=== PATIENT | male | born 1950 | race Caucasian/White ===

== ENCOUNTER 2018-02-13 11:32 | Emergency (ER) | payer MEDICARE, OTHER ==
[2018-02-13] MEDS ORDERED: NS 0.9% 1000 ML* 1,000 ML IV ONE (14:28)
[2018-02-13] MEDS ORDERED: Ketorolac INJ* 30 MG/ML 1 ML VIAL IV PUSH ONE (14:29)
[2018-02-13 14:54] LABS: ABS Basophils 0.1 10^3/ul (0-0.2); ABS Eosinophils 0.1 10^3/ul (0-0.6); ABS Lymphocytes 0.9 10^3/ul (1.0-4.8); ABS Monocytes 0.7 10^3/ul (0-0.8); ABS Nucleated RBC 0.1 10^3/ul; Hematocrit 47 % (42-52); Hemoglobin 16.3 g/dl (14.0-18.0); Mean Corpuscular HGB Conc 35 g/dl (31-36); Mean Corpuscular Hemoglobin 32 pg (27-31); Mean Corpuscular Volume 93 fL (80-94); Mean Platelet Volume 9 um3 (7.4-10.4); Platelet Count 131 10^3/ul (150-450); Red Blood Count 5.06 10^6/ul (4.0-5.4); Red Cell Distribution Width 13 % (10.5-15); White Blood Count 6.7 10^3/ul (3.5-10.8)
--- NOTE | 2018-02-13 15:02 | RAD ---
Indication: Abdominal pain. CT of the abdomen and pelvis was performed without oral or IV contrast.. Coronal and sagittal reconstructed images were obtained. The lung bases demonstrate no pleural fluid, nodules or masses. Heart is of normal size without evidence of pericardial effusion. The liver is normal in size. There are no focal lesions or intrahepatic duct dilatation noted. The gallbladder demonstrates no calcified gallstones. No pericholecystic fluid or wall thickening is identified. The spleen is normal in size. The pancreas demonstrates no mass or pancreatic duct dictation. No adrenal lesions are noted. The kidneys demonstrate fullness of the right renal collecting system. There is a tiny calculi measuring 2 to 3 mm in the right urinary bladder just adjacent or within the distal right ureterovesicular junction. This may represent a recently passed calculi. No renal masses are noted. No retroperitoneal adenopathy is noted. Atherosclerotic aorta is noted. Inferior vena cava is unremarkable. CT of the pelvis demonstrates normal appearing appendix. No dilated loops of bowel are noted. No hernias are noted. Prostate and seminal vesicles are otherwise unremarkable. The urinary bladder is grossly unremarkable. IMPRESSION: Fullness of the right renal collecting system. There is a 2 to 3 mm calculi in the right urinary bladder which may be within the ureterovesicular junction or just distal to it which may represent a recently passed calculi.
[2018-02-13 15:47] LABS: EGFR Non-African American 55.7 (>60)
[2018-02-13 15:47] LABS: Urine Appearance Clear; Urine Blood 3+ (Negative); Urine Color Yellow; Urine Ketones Negative (Negative); Urine Protein Negative (Negative); Urine Specific Gravity 1.017 (1.010-1.030); Urine Urobilinogen Negative (Negative)
[2018-02-13 16:24] VITALS: BP 125/73
--- NOTE | 2018-02-13 17:39 | ED ---
Faheem Strange Nilda, scribed for Maurice Chung MD on 02/13/18 at 1526 . GI/ HPI - HPI Summary HPI Summary: This patient is a 67 year old M presenting to [facility] with a chief complaint of constant RLQ pain that moves since this morning at 0700. The patient rates the pain 7/10 in severity. Symptoms aggravated by movement and palpation and alleviated by rest. Patient reports nausea but denies vomiting. Patient states no medications except for Atorvastatin. PMHx includes HLD, but no PMHx of renal calculi. - History of Current Complaint Chief Complaint: EDFlankPain Time Seen by Provider: 02/13/18 14:16 Stated Complaint: FLANK PAIN Hx Obtained From: Patient Onset/Duration: Started Hours Ago, Still Present Timing: Constant Current Severity: Severe Pain Intensity: 7 Location of Pain: RLQ Associated Signs and Symptoms: Positive: Other: - nausea; negative vomiting Aggravating Factor(s): Palpation, Movement Alleviating Factor(s): Rest - Allergy/Home Medications Allergies/Adverse Reactions: Allergies Allergy/AdvReac Type Severity Reaction Status Date / Time No Known Allergies Allergy Verified 08/12/17 13:24 PMH/Surg Hx/FS Hx/Imm Hx Cardiovascular History: Reports: Hx Hypercholesterolemia Sensory History: Denies: Hx Legally Blind EENT History: Denies: Hx Deafness - Surgical History Surgery Procedure, Year, and Place: toes Infectious Disease History: No Infectious Disease History: Denies: Traveled Outside the [place] in Last 30 Days - Family History Known Family History: Positive: Cardiac Disease, Diabetes - Social History Alcohol Use: None Substance Use Type: Reports: None Smoking Status (MU): Never Smoked Tobacco Review of Systems Negative: Shortness Of Breath Positive: Abdominal Pain - RLQ pain, Nausea. Negative: Vomiting All Other Systems Reviewed And Are Negative: Yes Physical Exam - Summary Physical Exam Summary: VITAL SIGNS: Reviewed. GENERAL: Patient is a well-developed and nourished male who is lying comfortable in the stretcher. Patient is not in any acute respiratory distress. HEAD AND FACE: No signs of trauma. No ecchymosis, hematomas or skull depressions. No sinus tenderness. EYES: PERRLA, EOMI x 2, No injected conjunctiva, no nystagmus. EARS: Hearing grossly intact. Ear canals and tympanic membranes are within normal limits. MOUTH: Oropharynx within normal limits. NECK: Supple, trachea is midline, no adenopathy, no JVD, no carotid bruit, no c- spine tenderness, neck with full ROM. CHEST: Symmetric, no tenderness at palpation LUNGS: Clear to auscultation bilaterally. No wheezing or crackles. CVS: Regular rate and rhythm, S1 and S2 present, no murmurs or gallops appreciated. ABDOMEN: Soft, non-tender. No signs of distention. No rebound no guarding, and no masses palpated. Bowel sounds are normal. BACK: Right CVA tenderness EXTREMITIES: FROM in all major joints, no edema, no cyanosis or clubbing. NEURO: Alert and oriented x 3. No acute neurological deficits. Speech is normal and follows commands. SKIN: Dry and warm Triage Information Reviewed: Yes Vital Signs On Initial Exam: Initial Vitals Temp Pulse Resp BP Pulse Ox 96.7 F 57 14 142/76 96 02/13/18 11:34 02/13/18 11:34 02/13/18 11:34 02/13/18 11:34 02/13/18 11:34 Vital Signs Reviewed: Yes Diagnostics - Vital Signs Vital Signs Temp Pulse Resp BP Pulse Ox 02/13/18 14:09 97.8 F 56 17 144/88 98 02/13/18 13:34 97.3 F 55 14 125/76 97 02/13/18 11:34 96.7 F 57 14 142/76 96 - Laboratory Lab Results: Lab Results 02/13/18 Range/Units 14:45 WBC 6.7 (3.5-10.8) 10^3/ul RBC 5.06 (4.0-5.4) 10^6/ul Hgb 16.3 (14.0-18.0) g/dl Hct 47 (42-52) % MCV 93 (80-94) fL MCH 32 H (27-31) pg MCHC 35 (31-36) g/dl RDW 13 (10.5-15) % Plt Count 131 L (150-450) 10^3/ul MPV 9 (7.4-10.4) um3 Neut % (Auto) 74.4 (38-83) % Lymph % (Auto) 14.0 L (25-47) % [place] % (Auto) 9.8 H (0-7) % Eos % (Auto) 1.0 (0-6) % Baso % (Auto) 0.8 (0-2) % Absolute Neuts (auto) 5.0 (1.5-7.7) 10^3/ul Absolute Lymphs (auto) 0.9 L (1.0-4.8) 10^3/ul Absolute Monos (auto) 0.7 (0-0.8) 10^3/ul Absolute Eos (auto) 0.1 (0-0.6) 10^3/ul Absolute Basos (auto) 0.1 (0-0.2) 10^3/ul Absolute Nucleated RBC 0.1 10^3/ul Nucleated RBC % 1.0 Result Diagrams: 02/13/18 14:45 02/13/18 14:45 Lab Statement: Any lab studies that have been ordered have been reviewed, and results considered in the medical decision making process. - CT Abd/Pel CT Interpretation Completed By: Radiologist - CT Abd/Pel, per radiologist, reveals Fullness of the right renal collecting system. There is a 2 to 3 mm calculi in the right urinary bladder which may be within the ureterovesicular junction or just distal to it which may represent a recently passed calculi. Dr. Chung has reviewed this radiology report. Re-Evaluation - Re-Evaluation First Eval Re-Evaluation Time: 16:17 Comment: Reviewed labs and imaging with patient. Patient is agreeable to D/C. GIGU Course/Dx - Course Assessment/Plan: This patient is a 67 year old M presenting to [facility] with a chief complaint of constant RLQ pain that moves since this morning at 0700. The patient rates the pain 7/10 in severity. Symptoms aggravated by movement and palpation and alleviated by rest. Patient reports nausea but denies vomiting. Patient states no medications except for Atorvastatin. PMHx includes HLD, but no PMHx of renal calculi. In the ED course an IV access was obtained. Patient was placed in a cardiac care unit nurse. Patient was started with IV fluids. Patient was given Toradol for the pain. Labs without any significant abnormality. Abdominal and pelvic CT IMPRESSION: Fullness of the right renal collecting system. There is a 2 to 3 mm calculi in the right urinary bladder which may be within the ureterovesicular junction or just distal to it which may represent a recently passed calculi. After medications patient feels better and pain resolved. I discussed all the findings and test results with the patient. Patient was instructed to return to the emergency room immediately if any of the symptoms return or worsens. Plan of care was discussed with the patient and understands and agrees. All questions were answered at patient satisfaction. There were no further complaints or concerns. Lung exam before discharge: CTA B/L. Good air exchange. No wheezing or crackles heard. CVS: S1 and S2 present. No murmurs appreciated. Patient is alert and oriented x 3. Patient is hemodynamically stable. Patient will be discharged home with follow up PCP in the next 2-3 days - Diagnoses Differential Diagnoses - Male: Renal Calculi, Renal Colic, Urinary Tract Infection Provider Diagnoses: Kidney stone Discharge - Discharge Plan Condition: Stable Disposition: HOME Patient Education Materials: Kidney Stones (ED) Referrals: Zechariah Fajardo MD [Primary Care Provider] - 3 Days Additional Instructions: RETURN TO THE EMERGENCY DEPARTMENT FOR CHANGING OR WORSENING SYMPTOMS. The documentation as recorded by the Faheem varner Nilda accurately reflects the service I personally performed and the decisions made by me, Maurice Chung MD.
== END 2018-02-13 16:25 | disposition home or self-care (01) ==
LOC: ED 11:32
DX: N20.0 Calculus of kidney (principal); E78.5 Hyperlipidemia, unspecified; E78.00 Pure hypercholesterolemia, unspecified; N21.0 Calculus in bladder
CPT/HCPCS: 36415; 74176; 80053; 81003; 81015; 83690; 85025; 86140; 87086; 96360; 96374; 99282